=== PATIENT | female | born 1980 | race American Indian/Alaskan Native ===

== ENCOUNTER 2018-03-29 21:08 | Emergency (ER) | payer MEDICAID ==
[2018-03-29 21:20] VITALS: BP 118/43
[2018-03-29] MEDS ORDERED: ASPIRIN PO ONE (21:20)
[2018-03-29 21:54] LABS: Bilirubin,Urine NEG (Negative); Blood,Urine NEG (Negative); Color,Urine Straw (Yellow); Hyaline Casts,Urine 1 /LPF; Protein,Urine <15 mg/dL mg/dL (Negative); Urobilinogen,Urine < 2.0 mg/dL (<2.0)
== END 2018-03-29 21:32 | disposition left against medical advice (07) ==
LOC: ED 21:08
DX: M25.512 Pain in left shoulder (principal); R12 Heartburn; Z72.0 Tobacco use; Z53.21 Procedure and treatment not carried out due to patient leaving prior to being seen by health care provider
CPT/HCPCS: 81001

== ENCOUNTER 2018-11-17 17:55 | Emergency (ER) | payer MEDICAID, OTHER ==
[2018-11-17 19:26] VITALS: BP 115/46
--- NOTE | 2018-11-17 20:49 | Emergency Department Report ---
Blank Doc - Documentation Documentation: 38 y.o. female presents to ED with upper back pain and anxiety. Denies SI/HI or recent injury. No PMH cc of upper back pain for 4-5 days. Exam: no spinal tenderness PlaN: Fast track side for evaluation
--- NOTE | 2018-11-17 23:16 | Emergency Department Report ---
ED Back Pain/Injury HPI - General Chief Complaint: Back Pain/Injury Stated Complaint: UPPER BACK PAIN/ANIXETY Time Seen by Provider: 11/17/18 20:45 Source: patient Limitations: No Limitations - History of Present Illness Initial Comments: This is a 38-year-old -[place] female who presents with upper back pain for 4-5 days. Patient states she started a new job 2 weeks ago moved in with her brother and currently sleeping on a futon. She currently works on a assembly line and repetitively bending forward. Patient reports pain is 8 out of 10 on pain scale and worse with movement. She reports pain as achy sensation. Patient reports increased crying secondary to pain. Concern for possible anxiety. Denies radiation of pain, swelling, paresthesias, weaknesses change in bowel or pattern. MD Complaint: back pain Onset/Timin -: days(s) Similar Symptoms Previously: No Place: home, work Radiation: none Severity: moderate Severity scale (0 -10): 8 Quality: aching Consistency: intermittent Improves With: none Worsens With: movement Context: while lifting, turning/twisting Associated Symptoms: denies: numbness, difficulty urinating, incontinence, fever/chills Treatments Prior to Arrival: NSAIDS, acetaminophen - Related Data Previous Rx's Medication Instructions Recorded Last Taken Type Naproxen [Naprosyn] 500 mg PO TID PRN #15 tablet 11/17/18 Unknown Rx Allergies Allergy/AdvReac Type Severity Reaction Status Date / Time No Known Allergies Allergy Unverified 03/29/18 21:20 ED Review of Systems ROS: Stated complaint: UPPER BACK PAIN/ANIXETY Other details as noted in HPI Constitutional: denies: chills, fever Respiratory: denies: cough, shortness of breath, wheezing Cardiovascular: denies: chest pain, palpitations Gastrointestinal: denies: abdominal pain, nausea, diarrhea Musculoskeletal: back pain. denies: joint swelling, arthralgia Skin: denies: rash, lesions Neurological: denies: headache, weakness, paresthesias Psychiatric: denies: anxiety, depression ED Back Pain Physical Exam - Exam General: Vital signs noted. No distress. Alert and acting appropriately. Back/Abdomen: Yes Perithoracic Tenderness (tenderness on palpation below right trapezius, no swelling or erythema), No Abdominal Tenderness, No Perilumbar Tenderness, No Sacroiliac Tenderness, No Flank Tenderness, No Straight Leg Raise Pain Neuro: Yes Normal Sensation, Yes Normal DTR's, Yes Normal Gait, No Motor Weakness ED Course Vital Signs 11/17/18 11/17/18 19:19 20:45 Temperature 98.7 F 98.7 F Pulse Rate 83 83 Respiratory 16 18 Rate Blood Pressure 115/46 115/46 O2 Sat by Pulse 100 100 Oximetry ED Medical Decision Making - Medical Decision Making Patient was examined by me. Vitals are normal and patient is in no acute distress. On focused exam negative spinal tenderness. Mechanical pain and muscle strain Start naproxen for pain. Plan discussed with patient to discharge home and treat outpatient. Patient discharged home in stable condition. Follow up with PCP in 2-3 days. Critical care attestation.: If time is entered above; I have spent that time in minutes in the direct care of this critically ill patient, excluding procedure time. ED Disposition Clinical Impression: Mechanical back pain, Acute upper back pain Muscle strain of right upper back Qualifiers: Encounter type: initial encounter Qualified Code(s): S29.012A - Strain of muscle and tendon of back wall of thorax, initial encounter Disposition: - TO HOME OR SELFCARE Is pt being admited?: No Does the pt Need Aspirin: No Condition: Stable Instructions: Muscle Strain (ED), Core Strengthening Exercises (GEN) Additional Instructions: Rest Use ice or heat on affected area for 20 minutes and off for 2 hours. Take pain medication as needed for pain. Follow up with Primary Care Provider in 2-3 days. Prescriptions: Naproxen [Naprosyn] 500 mg PO TID PRN #15 tablet PRN Reason: Pain , Severe (7-10) Referrals: RICHARD KIRBY MD [Primary Care Provider] - 3-5 Days [facility] [Outside] - 3-5 Days [facility] [Outside] - 3-5 Days Forms: Work/School Release Form(ED) Time of Disposition: 23:30
== END 2018-11-17 23:30 | disposition home or self-care (01) ==
LOC: ED 17:55
DX: S29.012A Strain of muscle and tendon of back wall of thorax, initial encounter (principal); X50.1XXA Overexertion from prolonged static or awkward postures, initial encounter; Y93.89 Activity, other specified; Y92.098 Other place in other non-institutional residence as the place of occurrence of the external cause; Y99.8 Other external cause status
CPT/HCPCS: 99282

== ENCOUNTER 2021-10-21 15:00 | Emergency (ER) | payer SELFPAY ==
[2021-10-21 15:08] VITALS: BP 127/71
--- NOTE | 2021-10-21 19:22 | Emergency Department Report ---
HPI - General Chief Complaint: Chest Pain Time Seen by Provider: 10/21/21 18:18 - HPI HPI: MSE 3 --> 30 The patient is a 41-year-old female present with a chief complaint of chest pain. The patient states for the past 2 days she has had intermittent pain in her left upper chest. Patient states the pain lasts for a few seconds and describes it as an ache in nature. Patient states because it was close to the area of her heart she decided to come into the emergency department for evaluation. Patient currently denies the pain. Patient denies history of cough or fever. Patient denies history of pleurisy or recent flights/long car trips. Patient denies shortness of breath, nausea/vomiting or diaphoresis ED Past Medical Hx - Past Medical History Previous Medical History?: No - Surgical History Past Surgical History?: No Hx Cholecystectomy: Yes - Family History Family history: no significant - Social History Smoking Status: Former Smoker (None x6 years) Substance Use Type: None (Denies illicit drug) - Medications Home Medications: Home Medications Medication Instructions Recorded Confirmed Last Taken Type Naproxen [Naprosyn] 500 mg PO TID PRN #15 tablet 11/17/18 Unknown Rx ED Review of Systems ROS: Stated complaint: CHEST PAIN Other details as noted in HPI Constitutional: denies: diaphoresis Eyes: denies: eye pain ENT: denies: throat pain Respiratory: denies: shortness of breath Cardiovascular: as per HPI Endocrine: no symptoms reported Gastrointestinal: denies: nausea, vomiting Genitourinary: denies: dysuria Musculoskeletal: denies: back pain Neurological: denies: headache Physical Exam - Physical Exam Vital Signs: Vital Signs 10/21/21 15:06 Temperature 99.2 F Pulse Rate 107 H Respiratory 20 Rate Blood Pressure 127/71 O2 Sat by Pulse 100 Oximetry Physical Exam: GENERAL: The patient is well-developed well-nourished female sitting on stretcher not appearing to be in acute distress. [] HEENT: Normocephalic. Atraumatic. Extraocular motions are intact. Patient has moist mucous membranes. NECK: Supple. Trachea CHEST/LUNGS: Clear to auscultation. There is no respiratory distress noted. HEART/CARDIOVASCULAR: Regular. There is no tachycardia. There is no gallop rub or murmur. ABDOMEN: Abdomen is soft, nontender. Patient has normal bowel sounds. There is no abdominal distention. SKIN: There is no rash. There is no edema. There is no diaphoresis. NEURO: The patient is awake, alert, and oriented. The patient is cooperative. The patient has no focal neurologic deficits. The patient has normal speech. GCS 15 MUSCULOSKELETAL: There is no evidence of acute injury. ED Course Vital Signs 10/21/21 15:06 Temperature 99.2 F Pulse Rate 107 H Respiratory 20 Rate Blood Pressure 127/71 O2 Sat by Pulse 100 Oximetry ED Medical Decision Making - Lab Data Result diagrams: 10/21/21 18:57 10/21/21 18:57 Laboratory Tests 10/21/21 10/21/21 10/21/21 18:57 18:57 18:57 WBC 5.3 RBC 4.25 Hgb 11.5 Hct 36.5 MCV 86 MCH 27 L MCHC 32 RDW 13.1 L Plt Count 230 Lymph % (Auto) 39.6 H [place] % (Auto) 6.2 Eos % (Auto) 1.8 Baso % (Auto) 0.5 Lymph # (Auto) 2.1 [place] # (Auto) 0.3 Eos # (Auto) 0.1 Baso # (Auto) 0.0 Seg Neutrophils % 51.9 Seg Neutrophils # 2.8 D-Dimer 169.30 Sodium 139 Potassium 4.1 Chloride 105.3 Carbon Dioxide 20 L Anion Gap 18 BUN 12 Creatinine 0.8 Estimated GFR > 60 BUN/Creatinine Ratio 15 Glucose 98 Calcium 8.9 Total Creatine Kinase 92 CK-MB (CK-2) 1.5 CK-MB (CK-2) Rel Index 1.6 Troponin T < 0.010 HCG, Qual 10/21/21 18:57 WBC RBC Hgb Hct MCV MCH MCHC RDW Plt Count Lymph % (Auto) [place] % (Auto) Eos % (Auto) Baso % (Auto) Lymph # (Auto) [place] # (Auto) Eos # (Auto) Baso # (Auto) Seg Neutrophils % Seg Neutrophils # D-Dimer Sodium Potassium Chloride Carbon Dioxide Anion Gap BUN Creatinine Estimated GFR BUN/Creatinine Ratio Glucose Calcium Total Creatine Kinase CK-MB (CK-2) CK-MB (CK-2) Rel Index Troponin T HCG, Qual Negative - EKG Data -: EKG Interpreted by Wi EKG shows normal: sinus rhythm Rate: normal - EKG Data When compared to previous EKG there are: previous EKG unavailable Interpretation: other (No ischemic changes seen) - Differential Diagnosis Chest wall pain, costochondritis, muscle spasm, PE, ACS Critical care attestation.: If time is entered above; I have spent that time in minutes in the direct care of this critically ill patient, excluding procedure time. ED Disposition Clinical Impression: Atypical chest pain Disposition: 07 LEFT AWOL/ELOPED Is pt being admited?: No Does the pt Need Aspirin: No Condition: Stable Instructions: Nonspecific Chest Pain, Adult Additional Instructions: Return to the emergency department should you develop worsening symptoms, inability to tolerate food or liquids, high fever or any other concerns Referrals: PRIMARY CARE, [Primary Care Provider] - 3-5 Days Forms: AMA Form Time of Disposition: 20:49 (Patient eloped before chest x-ray)
[2021-10-21 19:40] LABS: Basophils % (Auto) 0.5 % (0.0-1.8); Eosinophils # (Auto) 0.1 K/mm3 (0.0-0.4); Eosinophils % (Auto) 1.8 % (0.0-4.3); Hematocrit 36.5 % (30.3-42.9); Hemoglobin 11.5 gm/dl (10.1-14.3); Lymphocytes # (Auto) 2.1 K/mm3 (1.2-5.4); Lymphocytes % (Auto) 39.6 % (13.4-35.0); Mean Corpuscular HGB Conc 32 % (30-34); Mean Corpuscular Volume 86 fl (79-97); Monocytes # (Auto) 0.3 K/mm3 (0.0-0.8); Monocytes % (Auto) 6.2 % (0.0-7.3); Platelet Count 230 K/mm3 (140-440); Red Blood Count 4.25 M/mm3 (3.65-5.03); Red Cell Distribution Width 13.1 % (13.2-15.2)
[2021-10-21 20:02] LABS: Creatine Kinase MB 1.5 ng/mL (0.0-4.0)
[2021-10-21 20:07] LABS: BUN/Creatinine Ratio 15; Blood Urea Nitrogen 12 mg/dL (7-17); Calcium 8.9 mg/dL (8.4-10.2); Hemolysis Index 2
--- NOTE | 2021-10-24 08:52 | Electrocardiograph Report ---
[facility] Test Date: 2021-10-21 Test Time: 15:35:58 Pat Name: January Department: Room: Gender: F Nursery Rn: ISAAK : 1980 Requested By: LEYDA BALTAZAR Order Number: [id number] Reading MD: Genaro Hahn Measurements Intervals [place] Rate: 87 P: 80 CO: 127 QRS: 63 QRSD: 74 T: 29 QT: 356 QTc: 428 Interpretive Statements Sinus rhythm No previous ECG available for comparison Electronically Signed On 10-24-2021 8:52:25 EST by Genaro Hahn
== END 2021-10-21 20:15 | disposition left against medical advice (07) ==
LOC: ED 15:00
DX: R07.89 Other chest pain (principal)
CPT/HCPCS: 36415; 80048; 82550; 82553; 84484; 84703; 85025; 85379; 93005; 99283